=== PATIENT | male | born 2000 | race Caucasian/White ===

== ENCOUNTER → 2019-11-06 | Day surgery (SDC) | payer BC ==
[~2019-11-06] VITALS: Ht 172.7 cm; Wt 70.5 kg
[2019-11-06] VITALS (7 sets, daily range): BP systolic 103–139; BP diastolic 56–74; PULSE 57–75; TEMP 97.8–97.9
[~2019-11-06] MED LIST: CELEXA10 MG PO; NORCO 325 MG-51 TAB PO; PRILOSEC 20MG20 MG PO; TYLENOL 500MG500 MG PO
--- NOTE | 2019-11-06 15:54 | NUR ---
Patient brought back from PACU to [facility] via cart. Placed on monitors, vital signs stable. Pt is alert and oriented. Denies nausea. States pain is 5/10 to abdomen. Requesting juice and toast at this time. Mother at bedside. Warm blanket provided. Will continue to monitor.
--- NOTE | 2019-11-06 16:00 | NUR ---
Patient continues to complain of pain 5/10 to lower abdomen. Tolerating food and drink without difficulty. PO pain medication administered. Vital signs stable. Will continue to monitor.
--- NOTE | 2019-11-06 16:30 | NUR ---
Bandaids to abdomen clean dry and intact. Pt complains of some gas pain to abdomen. Vital signs stable. Will monitor.
--- NOTE | 2019-11-06 16:45 | NUR ---
Patient requests more juice and toast at this time.
--- NOTE | 2019-11-06 17:00 | NUR ---
Patient ambulated in [facility] to use restroom. Belched large amounts of gas. States he feels relief. Patient was able to urinate. Pt states he feels ready to go home. Abdomen pain 3/10 at this time. IV removed. Discharge instructions reviewed with patient and mother. All questions answered. Reviewed when to take next dose of pain medication. Pt to get dressed at this time.
--- NOTE | 2019-11-06 17:15 | NUR ---
Patient brought down to lobby via wheel chair. To be driven home by mother.
== END ==
LOC: SDCO 12:30
DX: K80.10 Calculus of gallbladder with chronic cholecystitis without obstruction (principal); F41.9 Anxiety disorder, unspecified; F84.5 Asperger's syndrome; Z80.49 Family history of malignant neoplasm of other genital organs; Z83.3 Family history of diabetes mellitus
CPT/HCPCS: J0330; J0690; J1100; J1885; J2250; J2405; J2704; J3010; J7120